=== PATIENT | male | born 1940 | race Caucasian/White ===

== ENCOUNTER → 2016-11-04 | Outpatient (CLI) | payer MEDICARE | LOC: WI 21:01 | PROVIDERS: ATTEND Internal Medicine | DX: C34.11 Malignant neoplasm of upper lobe, right bronchus or lung (principal) | CPT/HCPCS: 78815; A9552 ==

== ENCOUNTER → 2017-02-10 | Outpatient (CLI) | payer MEDICARE ==
--- NOTE | 2017-02-11 09:06 | RADIOLOGY REPORT (SQ) ---
EXAM DESCRIPTION: PET CT SKULL/THIGH COMPLETED DATE/TIME: 02/10/2017 4:25 pm REASON FOR STUDY: LUNG CANCER C34.11 MALIGNANT NEOPLASM OF UPPER LOBE, RIGHT BRONCHUS OR L COMPARISON: 11/04/2016 RADIONUCLIDE AND DOSE: 11.0 mCi F18 FDG The route of agent administration: Intravenous FASTING BLOOD SUGAR: 88 mg/dl CONTRAST TYPE AND DOSE: No CT contrast given. TECHNIQUE: Blood glucose level was verified. Above dose of FDG was injected intravenously. 2-D seg mented attenuation correction images were obtained from the base of the skull to the midthighs. Nonc ontrast CT images were obtained for attenuation correction and fusion with emission images. CT image s were performed without oral or intravenous contrast and are not sensitive for parenchymal lesions. A series of overlapping emission PET images were obtained. Images reviewed and manipulated at [facility] work station by the radiologist. Images stored on PACS. LIMITATIONS: None. FINDINGS: HEAD AND NECK: No areas of abnormal metabolic activity in the soft tissues of the head and neck. CHEST: Right upper lobe soft tissue density adjacent to treatment markers mean SUV 2.4. Morphology a nd metabolic activity are stable. ABDOMEN AND PELVIS: No areas of abnormal metabolic activity in the abdomen or pelvis. Expected physi ologic activity is present in the genitourinary system and bowel. PROXIMAL LOWER EXTREMITIES: No areas of abnormal metabolic activity in the soft tissues of the lower extremities. BONES: No abnormal metabolic activity in the visualized skeleton. ADDITIONAL CT FINDINGS: COPD and non hypermetabolic nodules measuring up to about 1 cm maximum diamet er. Small nonobstructing renal calculi. OTHER: No other significant findings. IMPRESSION: Previously treated neoplasm right upper lobe. Stable appearance since 11/04/2016 and 03/11. TECHNICAL DOCUMENTATION: JOB ID: [id number]- All Rights Reserved
== END ==
LOC: RAD 14:43
PROVIDERS: ATTEND Internal Medicine
DX: C34.11 Malignant neoplasm of upper lobe, right bronchus or lung (principal)
CPT/HCPCS: 78815; A9552

== ENCOUNTER 2017-04-04 08:30 | Day surgery (SDC) | payer MEDICARE ==
--- NOTE | 2017-03-28 14:37 | HISTORY AND PHYSICAL E ---
History and Physical NAME: VALENTIN DAVENPORT : 1940 AGE: 76Y ADMITTED: 04/04/2017 ROOM: HISTORY OF PRESENT ILLNESS: The patient is known to me for many years. He has not seen me since 1996. The patient is referred to us by Dr. Gaona regarding blood in the stools, hemorrhoids. PAST SURGICAL HISTORY: 1. He did have colonoscopy more than 10 years ago. 2. Thyroid surgery secondary to cancer. 3. He did have right upper lobe lung lesion resected. SOCIAL HISTORY: The patient is . Quit smoking 2012. He does not drink. FAMILY HISTORY: Father had CA of the lung. Mom had heart disease. REVIEW OF SYSTEMS: HEAD, EYES, EARS, NOSE, THROAT: The patient is using hearing aids. RESPIRATORY: Emphysema. He uses Spiriva. CARDIAC: Hypertension. High cholesterol. ENDOCRINE: History of thyroid resection, on thyroid replacement. GASTROINTESTINAL: Blood in the stools. Hemorrhoids. ONCOLOGY/HEMATOLOGY: Thyroid and lung CA. MUSCULOSKELETAL: Back pain. PHYSICAL EXAMINATION: GENERAL: Pleasant. VITAL SIGNS: Weight 205, blood pressure 110/60, pulse 80, temperature is 98. HEAD, EYES, EARS, NOSE, THROAT: Normal. NECK: Supple. LUNGS: Clear. ABDOMEN: Soft. NEUROLOGIC: Negative. CONCLUSION: Blood in the stool. PLAN: Colonoscopy. Scheduled for colonoscopy April 04. DICTATING PHYSICIAN: LAZARO SHAVER M.D. [id number] PHY#: [id number] ID: [id number] JOB#: [id number] ACCT: [id number] cc:LAZARO SHAVER M.D. >
[2017-04-04] MEDS ORDERED: MIDAZOLAM 2 MG/2 ML INJ ONE (08:44)
[2017-04-04] MEDS ORDERED: ONDANSETRON HCL INJ/PF 4 MG/2 ML SDV ONE (08:44)
[2017-04-04] MEDS ORDERED: NALOXONE HCL INJ/PF 0.4 MG/1 ML SDV ONE (08:44)
[2017-04-04] MEDS ORDERED: GLYCOPYRROLATE INJ 0.4 MG/2 ML VIAL ONE (08:44)
[2017-04-04] MEDS ORDERED: LIDOCAINE 2% JELLY 30 ML TUBE ONE (08:44)
[2017-04-04] MEDS ORDERED: FLUMAZENIL INJ 0.5 MG/5 ML VIAL ONE (08:45)
[2017-04-04] MEDS ORDERED: EPINEPHRINE INJ 1 MG/10 ML DISP.SYRIN ONE (08:45)
[2017-04-04] MEDS ORDERED: GLUCAGON,HUMAN RECOMB 1 MG INJ ONE (08:45)
[2017-04-04] MEDS: FENTANYL CITRATE INJ/PF 100 MCG/2 ML AMPUL ONE ×3 (09:11→09:26)
[2017-04-04 10:40] VITALS: BP 110/59
[2017-04-04 11:16] LABS: HEMATOCRIT 38.9 % (37.9-51.0); HEMOGLOBIN 13.1 g/dL (13.5-17.0); HGB HCT DIFFERENCE 0.4; MEAN CORPUSCULAR HEMOGLOBIN 30.6 pg (27.0-33.4); MEAN CORPUSCULAR HGB CONC 33.6 g/dL (32.0-36.0); MEAN CORPUSCULAR VOLUME 91 fl (80-97); RED BLOOD COUNT 4.27 10^6/uL (4.35-5.55); RED CELL DISTRIBUTION WIDTH 14.3 % (11.5-14.0); WHITE BLOOD COUNT 12.9 10^3/uL (4.0-10.5)
[2017-04-04 12:03] LABS: CARCINOEMBRYONIC ANTIGEN 2.2 ng/mL (<3.0)
--- NOTE | 2017-04-04 13:33 | DISCHARGE SUMMARY E ---
Discharge Summary NAME: VALENTIN DAVENPORT : 1940 AGE: 76Y ADMITTED: 04/04/2017 DISCHARGED: 04/04/2017 HOSPITAL COURSE: The patient is a 76-year-old male known to me, underwent colon screening today that shows a sessile polyp sigmoid descending resected and a sessile small polyp 1 cm mid transverse colon biopsied and benign diminutive polyps in the cecum. Patient does have diffuse diverticulosis. DISCHARGE PLAN: Hold aspirin, nonsteroidal 5 days. Full liquid diet today, then soft, low-residue diet for a few days. Patient to have baseline lab studies. Patient to see us in the office in the next few days. FINAL DIAGNOSES: 1. Colon polyps. 2. Diverticulosis. DICTATING PHYSICIAN: LAZARO SHAVER M.D. [id number] PHY#: [id number] ID: [id number] JOB#: [id number] ACCT: [id number] cc:CHEYENNE CARTAGENA M.D., MAHMOUD M.D. >
--- NOTE | 2017-04-04 13:35 | OPERATIVE REPORT E ---
Operative Report NAME: VALENTIN DAVENPORT : 1940 AGE: 76Y DATE OF SURGERY: 04/04/2017 ROOM: PREOPERATIVE DIAGNOSIS: Colon screening. POSTOPERATIVE DIAGNOSES: 1. Sessile polyp in the sigmoid descending colon, injected, resected. 2. A sessile polyp in mid transverse colon, biopsy. 3. Small poly in cecum, biopsy. 4. Patient does have diverticulosis in sigmoid descending colon. PROCEDURE: Colonoscopy. SURGEON: LAZARO SHAVER M.D. ANESTHESIA: Versed and fentanyl combination. TISSUE REMOVED OR ALTERED: One polyp injected, resected in descending colon sigmoid. A small polyp biopsy and Catarina ink transverse colon and sessile polyp in cecum. Recommend patient to undergo followup colonoscopy in 3-6 months pending biopsy results. DESCRIPTION OF PROCEDURE: Rectal exam: Enlarged prostate. Anal sphincter slightly narrow. Sigmoid descending colon diverticulosis. Sessile polyp about 1 cm in the descending colon, injected, resected. Transverse colon shows a sessile 1 cm polyp biopsied and Catarina ink above it and below it. Ascending colon normal. Cecum shows tiny polyps. Biopsy obtained. Scope withdrawn from cecum, ascending, transverse, descending, sigmoid, all the way to the rectum. CONCLUSION: Multiple polyps. PLAN: Patient to be discharged on full liquids and soft low residue diet. Baseline CBC, CEA. Awaiting biopsy results. Consider followup colonoscopy in 3 months to 6 months. DICTATING PHYSICIAN: LAZARO SHAVER M.D. [id number] PHY#: [id number] ID: [id number] JOB#: [id number] ACCT: [id number] cc:CHEYENNE CARTAGENA M.D., MAHMOUD M.D. >
== END 2017-04-04 10:55 | disposition home or self-care (01) ==
LOC: END 08:30
PROVIDERS: ATTEND Specialist
PROC: 0DBH8ZX Excision of Cecum, Via Natural or Artificial Opening Endoscopic, Diagnostic (ICD-10-PCS; principal; 2017-04-04 09:00)
PROC: 0DBL8ZX Excision of Transverse Colon, Via Natural or Artificial Opening Endoscopic, Diagnostic (ICD-10-PCS; 2017-04-04 09:00)
DX: D12.0 Benign neoplasm of cecum (principal); D12.3 Benign neoplasm of transverse colon; K57.30 Diverticulosis of large intestine without perforation or abscess without bleeding; K92.1 Melena; R97.0 Elevated carcinoembryonic antigen [CEA]; Z12.5 Encounter for screening for malignant neoplasm of prostate; I10 Essential (primary) hypertension; E78.00 Pure hypercholesterolemia, unspecified; J43.9 Emphysema, unspecified; E89.0 Postprocedural hypothyroidism; Z87.891 Personal history of nicotine dependence; Z79.51 Long term (current) use of inhaled steroids; Z85.850 Personal history of malignant neoplasm of thyroid; Z85.118 Personal history of other malignant neoplasm of bronchus and lung
CPT/HCPCS: 45380; 45385; 45381; 36415; 82378; 85027; 88305 ×2; G0103; J2250; J3010; J1610; J0171; J2310; J2405; J3490

== ENCOUNTER → 2017-06-09 | Outpatient (CLI) | payer MEDICARE ==
--- NOTE | 2017-06-10 17:50 | RADIOLOGY REPORT (SQ) ---
EXAM DESCRIPTION: PET CT SKULL/THIGH COMPLETED DATE/TIME: 06/09/2017 9:05 pm REASON FOR STUDY: LUNG CANCER C34.11 MALIGNANT NEOPLASM OF UPPER LOBE, RIGHT BRONCHUS OR L COMPARISON: Prior PET-CT exams 09/10/2016, 11/04/2016, 03/11/2016 RADIONUCLIDE AND DOSE: 11.7 mCi F18 FDG The route of agent administration: Intravenous FASTING BLOOD SUGAR: 84 mg/dl CONTRAST TYPE AND DOSE: No CT contrast given. TECHNIQUE: Blood glucose level was verified. Above dose of FDG was injected intravenously. 2-D seg mented attenuation correction images were obtained from the base of the skull to the midthighs. Nonc ontrast CT images were obtained for attenuation correction and fusion with emission images. CT image s were performed without oral or intravenous contrast and are not sensitive for parenchymal lesions. A series of overlapping emission PET images were obtained. Images reviewed and manipulated at [facility] work station by the radiologist. Images stored on PACS. LIMITATIONS: None. FINDINGS: HEAD AND NECK: No areas of abnormal metabolic activity in the soft tissues of the head and neck. Surgical clips post thyroidectomy. CHEST: In the right lung apex, a 3.5 x 3 cm mass is present with radiotherapy treatment markers. SUV 1.9. This is unchanged from 11/04/2016 and 02/10/2017. Lungs otherwise demonstrate pulmonary fibrosis and obstructive lung disease. Non metabolic subcentim eter subpleural noncalcified nodules are present in the periphery of the right upper lobe, with a non metabolic benign 12 mm nodule along the right minor fissure. ABDOMEN AND PELVIS: No areas of abnormal metabolic activity in the abdomen or pelvis. Expected physi ologic activity is present in the genitourinary system and bowel. PROXIMAL LOWER EXTREMITIES: No areas of abnormal metabolic activity in the soft tissues of the lower extremities. BONES: No abnormal metabolic activity in the visualized skeleton. ADDITIONAL CT FINDINGS: Coronary artery calcifications. Post appendectomy. Old lower lumbar laminec sean. OTHER: Liver background SUV 2.4. Blood pool background activity SUV 1.6 IMPRESSION: Stable right apical lung mass, compared to 02/10/2017 and 11/04/2016 PET-CT exam TECHNICAL DOCUMENTATION: JOB ID: [id number] [employer]- All Rights Reserved
== END ==
LOC: RAD 16:36
PROVIDERS: ATTEND Internal Medicine
DX: C34.11 Malignant neoplasm of upper lobe, right bronchus or lung (principal)
CPT/HCPCS: 78815; A9552

== ENCOUNTER → 2017-12-02 | Outpatient (CLI) | payer MEDICARE ==
--- NOTE | 2017-12-02 10:35 | RADIOLOGY REPORT (SQ) ---
EXAM DESCRIPTION: CT CHEST WITHOUT COMPLETED DATE/TIME: 12/02/2017 8:23 am REASON FOR STUDY: LUNG CANCER C34.11 MALIGNANT NEOPLASM OF UPPER LOBE, RIGHT BRONCHUS OR L COMPARISON: 09/10/2016 TECHNIQUE: CT scan performed of the chest without intravenous contrast. Images reviewed with lung, soft tissue and bone windows. Reconstructed coronal and sagittal MPR images reviewed. All images st ored on PACS. All CT scanners at this facility use dose modulation, iterative reconstruction, and/or weight based d osing when appropriate to reduce radiation dose to as low as reasonably achievable (ALARA). [facility]: Dose Right [facility]: CareDose [facility]: Dose Right [facility]: Teradose 4D [facility]: [employer] RADIATION DOSE: CT Rad equipment meets quality standard of care and radiation dose reduction techniq ues were employed. CTDIvol: 10.6 mGy. DLP: 412 mGy-cm. mGy. LIMITATIONS: No technical limitations. FINDINGS: LUNGS AND PLEURA: Right upper lobe lung mass is now measures 32 x 30 mm. This is slightly smaller than on the earlier study. Moderate emphysematous changes are present. A 12 mm nodule is s een on the right on image 65. This is stable. No new pulmonary nodules are present. There is no pl eural effusion. HILAR AND MEDIASTINAL STRUCTURES: No identified masses or abnormal nodes. No obvious aneurysm. HEART AND VASCULAR STRUCTURES: No aneurysm. No pericardial effusion. UPPER ABDOMEN: No significant findings. Limited exam. THYROID AND OTHER SOFT TISSUES: No masses. No adenopathy. BONES: No significant finding. HARDWARE: None in the chest. OTHER: No other significant findings. IMPRESSION: Right upper lobe lung mass is slightly smaller than on the prior study. There is a 12 m m nodule seen in the right lung that is stable. Pulmonary emphysema is present. TECHNICAL DOCUMENTATION: JOB ID: [id number] Quality ID # [id number]: Final reports with documentation of one or more dose reduction techniques (e.g., Au tomated exposure control, adjustment of the mA and/or kV according to patient size, use of iterative reconstruction technique) 2010 [employer]- All Rights Reserved Reading location - IP/workstation name: [email or web address]
== END ==
LOC: RAD 08:14
PROVIDERS: ATTEND Internal Medicine
DX: C34.11 Malignant neoplasm of upper lobe, right bronchus or lung (principal); J43.9 Emphysema, unspecified
CPT/HCPCS: 71250

== ENCOUNTER → 2018-05-21 | Outpatient (CLI) | payer MEDICARE ==
--- NOTE | 2018-05-21 13:18 | RADIOLOGY REPORT (SQ) ---
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 Images reviewed with lung, soft tissue and bone windows. Reconstructed coronal and sagittal MPR images reviewed. All images st ored on PACS. All CT scanners at this facility use dose modulation, iterative reconstruction, and/or weight based d osing when appropriate to reduce radiation dose to as low as reasonably achievable (ALARA). [facility]: Dose Right [facility]: CareDose [facility]: Dose Right [facility]: Teradose 4D [facility]: [employer] RADIATION DOSE: CT Rad equipment meets quality standard of care and radiation dose reduction techniq ues were employed. CTDIvol: 9.9 mGy. DLP: 375 mGy-cm. mGy. LIMITATIONS: No technical limitations. FINDINGS: LUNGS AND PLEURA: Right apical mass with radiotherapy treatment markers is present, 3 x 3 cm in size (was 3.2 x 3 cm on 12/02/2017, 3.5 x 3 cm on 06/09/2017). There is a stable 12 mm bandlike nodule along the right minor fissure unchanged compared to studies d ating back to 2013, of doubtful clinical significance. 4 mm nodule posterior left lung base unchange d from studies dating back to 2013, of doubtful clinical significance. No acute infiltrates. No pleural effusion. No pneumothorax. Obstructive lung disease in the bilate ral upper lobes. Mild thickening of the interlobular septa at both lung bases, from mild pulmonary f ibrosis. HILAR AND MEDIASTINAL STRUCTURES: No identified masses or abnormal nodes. No obvious aneurysm. HEART AND VASCULAR STRUCTURES: No aneurysm. No pericardial effusion. Moderate coronary artery calci fication UPPER ABDOMEN: No significant findings. Limited exam. THYROID AND OTHER SOFT TISSUES: No masses. No adenopathy. Post thyroidectomy. BONES: No significant finding. HARDWARE: None in the chest. OTHER: No other significant findings. IMPRESSION: Persistent right apical mass with radiotherapy treatment markers, slightly smaller than on previous exams. Significant obstructive lung disease and coronary artery calcifications TECHNICAL DOCUMENTATION: JOB ID: [id number] Quality ID # [id number]: Final reports with documentation of one or more dose reduction techniques (e.g., Au tomated exposure control, adjustment of the mA and/or kV according to patient size, use of iterative reconstruction technique) 2010 [employer]- All Rights Reserved Reading location - IP/workstation name: [email or web address]
== END ==
LOC: RAD 13:58
PROVIDERS: ATTEND Internal Medicine
DX: C34.11 Malignant neoplasm of upper lobe, right bronchus or lung (principal)
CPT/HCPCS: 71250

== ENCOUNTER 2018-09-22 09:42 | Emergency (ER) | payer MEDICARE ==
[2018-09-22] MEDS ORDERED: ACETAMINOPHEN 325 MG TABLET PO ONE (10:40)
--- NOTE | 2018-09-22 10:40 | ER Document Report ---
Addendum entered and electronically signed by DESTINEE CRUZ FNP 09/22/18 22:48: Procedures - Immobilization Left Shoulder Pre-Proc Neuro Vasc Exam: Normal Immobilizer type: Sling Performed by: PCT Post-Proc Neuro Vasc Exam: Normal, Unchanged from pre-exam Alignment checked and good: Yes Original Note: HPI - HPI Time Seen by Provider: 09/22/18 10:27 Pain Level: 3 Context: Patient is a 78-year-old male who presents the emergency department with left shoulder and upper arm pain. This morning around 730 he fell off the back of a truck and hit his left shoulder. He complains of pain to his left upper anterior shoulder. He denies any shortness of breath, chest pain, or hand pain. He has a past medical history of lung cancer, hypothyroidism, hypertension, stents placed in 1998. He denies any blood thinner use. He denies hitting his head. - ROS Systems Reviewed and Negative: Yes All other systems reviewed and negative - EENT EENT: DENIES: Sore Throat - NEURO Neurology: DENIES: Headache - CARDIOVASCULAR Cardiovascular: DENIES: Chest pain - MUSCULOSKELETAL Musculoskeletal: REPORTS: Extremity pain - Left shoulder - DERM Skin Color: Normal Skin Problems: None Past Medical History - Social History Smoking Status: Never Smoker Family History: Reviewed & Not Pertinent - Past Medical History Cardiac Medical History: Reports: Hx Congestive Heart Failure, Hx Coronary Artery Disease - stent x 1998, Hx Hypercholesterolemia, Hx Hypertension - ON MEDS Denies: Hx Heart Attack Pulmonary Medical History: Reports: Hx COPD, Hx Pneumonia - 15 YR AGO Denies: Hx Asthma, Hx Bronchitis Neurological Medical History: Denies: Hx Cerebrovascular Accident, Hx Seizures Malignancy Medical History: Reports Hx Lung Cancer Musculoskeletal Medical History: Reports Hx Arthritis Past Surgical History: Reports: Hx Abdominal Surgery - small bowel, Hx Appendectomy, Hx Cardiac Catheterization - w/ stent , Hx Orthopedic Surgery - knee, back, carple tunnel - Immunizations Hx Diphtheria, Pertussis, Tetanus Vaccination: Yes Hx Pneumococcal Vaccination: 04/09/16 Vertical Provider Document - CONSTITUTIONAL Agree With Documented VS: Yes Exam Limitations: No Limitations - INFECTION CONTROL TRAVEL OUTSIDE OF THE [place] IN LAST 30 DAYS: No - HEENT HEENT: Atraumatic, Normocephalic - NECK Neck: Normal Inspection - RESPIRATORY Respiratory: Breath Sounds Normal, No Respiratory Distress - CARDIOVASCULAR Cardiovascular: Regular Rate, Regular Rhythm Pulses: Normal: Radial - MUSCULOSKELETAL/EXTREMETIES Musculoskeletal/Extremeties: Tender - Left shoulder. negative: FROM - Unable to lift left upper extremity - NEURO Level of Consciousness: Awake, Alert, Appropriate Motor/Sensory: No Sensory Deficit - DERM Integumentary: Warm, Dry, No Rash Course - Re-evaluation Re-evalutation: 09/22/18 11:36 Patient has a nondisplaced fracture of the surgical neck of the humerus. He has good radial and ulnar pulses. He will be provided a sling and referred out to orthopedics for follow-up. Results have been given to the patient. Verbal discharge instructions were given to the patient. They verbalized understanding. They are stable for discharge. - Vital Signs Vital signs: Temp Pulse Resp BP Pulse Ox 97.7 F 64 16 165/78 H 97 09/22/18 09:57 09/22/18 09:57 09/22/18 09:57 09/22/18 09:57 09/22/18 09:57 Discharge - Discharge Clinical Impression: Humeral surgical neck fracture Condition: Stable Disposition: HOME, SELF-CARE Instructions: Ice Packs ([facility]), Sling as Treatment ([facility]) Additional Instructions: You were seen today in the emergency department after a fall. You have a fracture in your upper arm. Please follow-up with orthopedics tomorrow. You have been provided a sling. Please wear the sling until you see orthopedics. You can take Tylenol 1000 mg and ibuprofen 600 mg every 6 hours as needed for the pain. If you have worsening symptoms, or have any symptoms that are worrisome to you, please return to the emergency department. Referrals: RIA ESTRADA MD [ACTIVE STAFF] - Follow up as needed DRU LEDEZMA DO [ACTIVE STAFF] - Follow up as needed
--- NOTE | 2018-09-22 11:19 | RADIOLOGY REPORT (SQ) ---
EXAM DESCRIPTION: SHOULDER LEFT 2 OR MORE VIEWS COMPLETED DATE/TIME: 09/22/2018 10:55 am REASON FOR STUDY: fall COMPARISON: None. NUMBER OF VIEWS: Three views. TECHNIQUE: Internal rotation, external rotation, and Y view images acquired of the left shoulder. LIMITATIONS: None. FINDINGS: MINERALIZATION: Normal. BONES: Comminuted fracture of the surgical neck. Fracture line extends through the greater tuberosit y. Less than 1 cm displacement. JOINTS: No dislocation. VISUALIZED LUNGS AND RIBS: No pneumothorax. No rib fracture. SOFT TISSUES: No radiopaque foreign body. OTHER: No other significant finding. IMPRESSION: Fracture of the surgical neck of the humerus. TECHNICAL DOCUMENTATION: JOB ID: [id number] [employer]- All Rights Reserved Reading location - IP/workstation name: [email or web address]
[2018-09-22 12:05] VITALS: BP 130/66
== END 2018-09-22 12:08 | disposition home or self-care (01) ==
LOC: ER 09:42
DX: S42.215A Unspecified nondisplaced fracture of surgical neck of left humerus, initial encounter for closed fracture (principal); M25.512 Pain in left shoulder; W17.89XA Other fall from one level to another, initial encounter; I25.10 Atherosclerotic heart disease of native coronary artery without angina pectoris; I10 Essential (primary) hypertension; J44.9 Chronic obstructive pulmonary disease, unspecified; Z85.118 Personal history of other malignant neoplasm of bronchus and lung; Z95.5 Presence of coronary angioplasty implant and graft
CPT/HCPCS: 99283; 73030; A9270

== ENCOUNTER → 2018-10-31 | Outpatient (CLI) | payer MEDICARE ==
--- NOTE | 2018-10-31 09:13 | RADIOLOGY REPORT (SQ) ---
EXAM DESCRIPTION: CT CHEST WITHOUT COMPLETED DATE/TIME: 10/31/2018 8:13 am REASON FOR STUDY: LUNG CA (C34.11) C34.11 MALIGNANT NEOPLASM OF UPPER LOBE, RIGHT BRONCHUS OR L COMPARISON: 05/21/2018. TECHNIQUE: CT scan performed of the chest without intravenous contrast. Images reviewed with lung, soft tissue and bone windows. Reconstructed coronal and sagittal MPR images reviewed. All images st ored on PACS. All CT scanners at this facility use dose modulation, iterative reconstruction, and/or weight based d osing when appropriate to reduce radiation dose to as low as reasonably achievable (ALARA). [facility]: Dose Right [facility]: CareDose [facility]: Dose Right [facility]: Teradose 4D [facility]: [employer] RADIATION DOSE: CT Rad equipment meets quality standard of care and radiation dose reduction techniq ues were employed. CTDIvol: 14.1 mGy. DLP: 556 mGy-cm. mGy. LIMITATIONS: No technical limitations. FINDINGS: LUNGS AND PLEURA: Changes of centrilobular emphysema. Findings consist with subpleural c hronic interstitial changes with minimal honeycombing noted in lung bases. Right upper lobe mass wit h radiotherapy treatment markers now measuring 3.1 cm(AP) x3.5(T)x1.9(H) larger in size when compared to prior study 05/21/2018 (image 27/131 series 4). There is a 1.4(AP) x 0.6(T)x0.6(H) cm nodule abu tting the minor fissure again noted (image 58/131 series 4). There is a 4 mm pulmonary nodule left l ower lobe unchanged (image 82/131 series 4). HILAR AND MEDIASTINAL STRUCTURES: Small AP window nodes and anterior mediastinal nodes. HEART AND VASCULAR STRUCTURES: Atherosclerotic change of the coronary arteries. Atherosclerotic quiles ge of thoracic aorta. No pericardial effusion. UPPER ABDOMEN: No significant findings. Limited exam. THYROID AND OTHER SOFT TISSUES: No masses. No adenopathy. BONES: Dorsal spondylosis. HARDWARE: Total left humeral prosthesis. . IMPRESSION: On comparison to prior study, there has been minimal increase in size of right upper lob e mass with radiotherapy markers. Stable elliptical mass abutting right but are fissure. Stable 4 m m low left lower lobe pulmonary nodule. Centrilobular emphysema. Chronic interstitial fibrosis. At herosclerotic coronary artery disease. TECHNICAL DOCUMENTATION: JOB ID: [id number] Quality ID # [id number]: Final reports with documentation of one or more dose reduction techniques (e.g., Au tomated exposure control, adjustment of the mA and/or kV according to patient size, use of iterative reconstruction technique) 2010 [employer]- All Rights Reserved Reading location - IP/workstation name: [email or web address]
== END ==
LOC: RAD 07:51
PROVIDERS: ATTEND Internal Medicine
DX: C34.11 Malignant neoplasm of upper lobe, right bronchus or lung (principal)
CPT/HCPCS: 71250

== ENCOUNTER → 2018-11-16 | Outpatient (CLI) | payer MEDICARE ==
--- NOTE | 2018-11-17 10:35 | RADIOLOGY REPORT (SQ) ---
EXAM DESCRIPTION: PET CT SKULL/THIGH COMPLETED DATE/TIME: 11/17/2018 4:08 am REASON FOR STUDY: (C34.11) MALIGNANT NEOPLASM OF UPPER LOBE, RIGHT BRONCHUS OR LUNG C34.11 MALIGNAN T NEOPLASM OF UPPER LOBE, RIGHT BRONCHUS OR L COMPARISON: 06/09/2017 RADIONUCLIDE AND DOSE: 10.7 mCi F18 FDG The route of agent administration: Intravenous FASTING BLOOD SUGAR: 92 mg/dl CONTRAST TYPE AND DOSE: No CT contrast given. TECHNIQUE: Blood glucose level was verified. Above dose of FDG was injected intravenously. 2-D seg mented attenuation correction images were obtained from the base of the skull to the midthighs. Nonc ontrast CT images were obtained for attenuation correction and fusion with emission images. CT image s were performed without oral or intravenous contrast and are not sensitive for parenchymal lesions. A series of overlapping emission PET images were obtained. Images [facility] by the radiologist. Images stored on PACS. LIMITATIONS: Artifact from left shoulder arthroplasty. FINDINGS: HEAD AND NECK: No areas of abnormal metabolic activity in the soft tissues of the head and neck. CHEST: Right apical eft lesion with radiation markers 2.5 x 3.3 cm, previously 3.0 x 3.5 cm. 2.0 SUV . ABDOMEN AND PELVIS: No areas of abnormal metabolic activity in the abdomen or pelvis. Expected physi ologic activity is present in the genitourinary system and bowel. PROXIMAL LOWER EXTREMITIES: No areas of abnormal metabolic activity in the soft tissues of the lower extremities. BONES: No abnormal metabolic activity in the visualized skeleton. ADDITIONAL CT FINDINGS: Stable non hypermetabolic nodule along the right minor fissure. No significa nt or acute findings since the prior. OTHER: No other significant findings. IMPRESSION: Decrease in size of right apical lung nodule. No evidence of metastatic disease. TECHNICAL DOCUMENTATION: JOB ID: [id number] [employer]- All Rights Reserved Reading location - IP/workstation name: [email or web address]
== END ==
LOC: RAD 17:16
PROVIDERS: ATTEND Physician Assistant Medical
DX: C34.11 Malignant neoplasm of upper lobe, right bronchus or lung (principal)
CPT/HCPCS: 78815; A9552

== ENCOUNTER → 2019-11-12 | Outpatient (CLI) | payer MEDICARE ==
--- NOTE | 2019-11-12 09:46 | RADIOLOGY REPORT (SQ) ---
EXAM DESCRIPTION: CT CHEST WITHOUT IMAGES COMPLETED DATE/TIME: 11/12/2019 8:38 am REASON FOR STUDY: LUNG CA (C34.11) C34.11 MALIGNANT NEOPLASM OF UPPER LOBE, RIGHT BRONCHUS OR L COMPARISON: 10/31/2018. PET-CT 11/16/2018. TECHNIQUE: CT scan performed of the chest without intravenous contrast. Images reviewed with lung, soft tissue and bone windows. Reconstructed coronal and sagittal MPR images reviewed. All images st ored on PACS. All CT scanners at this facility use dose modulation, iterative reconstruction, and/or weight based d osing when appropriate to reduce radiation dose to as low as reasonably achievable (ALARA). [facility]: Dose Right [facility]: CareDose [facility]: Dose Right [facility]: Teradose 4D [facility]: Perfect Audience RADIATION DOSE: CT Rad equipment meets quality standard of care and radiation dose reduction techniq ues were employed. CTDIvol: 13.9 mGy. DLP: 534 mGy-cm. mGy. LIMITATIONS: Artifact from left shoulder arthroplasty. FINDINGS: LUNGS AND PLEURA: Mass with radiation markers in the right upper lobe measures 3.0 by 3.4 cm not significantly changed. Much smaller nodules in the right lung, image 46, image 51, image 61 a ll stable. 4 mm left lower lobe nodule image 84, stable. No new nodules. HILAR AND MEDIASTINAL STRUCTURES: No identified masses or abnormal nodes. No obvious aneurysm. HEART AND VASCULAR STRUCTURES: No aneurysm. No pericardial effusion. UPPER ABDOMEN: No significant findings. Limited exam. THYROID AND OTHER SOFT TISSUES: No masses. No adenopathy. BONES: No significant finding. HARDWARE: None in the chest. OTHER: No other significant findings. IMPRESSION: Stable pulmonary nodules. TECHNICAL DOCUMENTATION: JOB ID: [id number] Quality ID # [id number]: Final reports with documentation of one or more dose reduction techniques (e.g., Au tomated exposure control, adjustment of the mA and/or kV according to patient size, use of iterative reconstruction technique) 2010 [employer]- All Rights Reserved Reading location - IP/workstation name: [email or web address]
== END ==
LOC: RAD 08:26
PROVIDERS: ATTEND Physician Assistant Medical
DX: C34.11 Malignant neoplasm of upper lobe, right bronchus or lung (principal)
CPT/HCPCS: 71250

== ENCOUNTER 2020-01-13 09:44 | Day surgery (SDC) | payer MEDICARE ==
[2020-01-08 08:27] LABS: HEMATOCRIT 39.6 % (37.9-51.0); HEMOGLOBIN 13.5 g/dL (13.5-17.0); MEAN CORPUSCULAR HEMOGLOBIN 31.4 pg (27.0-33.4); MEAN CORPUSCULAR HGB CONC 34.2 g/dL (32.0-36.0); MEAN CORPUSCULAR VOLUME 92 fl (80-97); PLATELET COUNT 219 10^3/uL (150-450); RED BLOOD COUNT 4.31 10^6/uL (4.35-5.55); RED CELL DISTRIBUTION WIDTH 13.5 % (11.5-14.0); WHITE BLOOD COUNT 8.1 10^3/uL (4.0-10.5)
[2020-01-08 08:35] LABS: INTERNATIONAL RATION (INR) 0.96; PROTHROMBIN TIME 12.8 SEC (11.4-15.4)
[2020-01-08 08:36] LABS: PARTIAL THROMBOPLASTIN TIME 30.2 SEC (23.5-35.8)
[2020-01-08 08:51] LABS: ANION GAP 7 (5-19); BLOOD UREA NITROGEN 19 mg/dL (7-20); CALCIUM 9.4 mg/dL (8.4-10.2); CARBON DIOXIDE 29 mmol/L (22-30); CHLORIDE 102 mmol/L (98-107); GLUCOSE 112 mg/dL (75-110); POTASSIUM 4.5 mmol/L (3.6-5.0)
--- NOTE | 2020-01-08 18:20 | EKG REPORT ---
SEVERITY:- ABNORMAL ECG - SINUS RHYTHM FIRST DEGREE AV BLOCK RIGHT BUNDLE BRANCH BLOCK : Confirmed by: Praveen Cervantes MD 08-Jan-2020 18:19:57
[~2020-01-13 09:44] MED LIST: CEFAZOLIN 1 GM/D5W RTU 1 GM/50 ML RTUPB IV ONE; CEFAZOLIN 1 GM/D5W RTU 1 GM/50 ML RTUPB IV PRN; LACTATED RINGERS 1000 ML IV PRN
[2020-01-13] MEDS ORDERED: SODIUM BICARBONATE 4.2% INJ (2.5 MEQ/5 ML) VIAL ONE (11:42)
[2020-01-13] MEDS ORDERED: LIDOCAINE 1%/EPINEPHRINE INJ 20 ML VIAL ONE ×2 (11:42→11:43)
[2020-01-13] MEDS ORDERED: POVIDONE-IODINE 5% OPH PREP SOLN 30 ML ONE (11:42)
[2020-01-13] MEDS ORDERED: PROPOFOL INJ 200 MG/20 ML VIAL IV ONE (11:43)
[2020-01-13] MEDS ORDERED: MIDAZOLAM 2 MG/2 ML INJ ONE (11:43)
[2020-01-13] MEDS ORDERED: FENTANYL CITRATE INJ/PF 100 MCG/2 ML AMPUL ONE (11:43)
[2020-01-13] MEDS ORDERED: DIPHENHYDRAMINE HCL 50 MG/ML VIAL IV PRN (12:07)
[2020-01-13] MEDS ORDERED: MEPERIDINE HCL/PF INJ 25 MG/1 ML DISP.SYRIN IV PRN (12:07)
[2020-01-13] MEDS ORDERED: OXYCODONE-ACETAMINOPHEN 5-325 MG TABLET PO PRN ×2 (12:07)
[2020-01-13] MEDS ORDERED: PROMETHAZINE HCL INJ 25 MG/1 ML VIAL IV PRN ×2 (12:07)
[2020-01-13] MEDS ORDERED: FENTANYL CITRATE INJ/PF 100 MCG/2 ML AMPUL IV PRN ×3 (12:07)
--- NOTE | 2020-01-13 13:35 | Operative Report ---
Operative Report DATE OF SURGERY: 01/13/20 PREOPERATIVE DIAGNOSIS: Suspected basal cell carcinoma of the left upper sideb urn POSTOPERATIVE DIAGNOSIS: Basal cell carcinoma of the left upper sideburn OPERATION: Excision of basal cell carcinoma from the left upper sideburn with frozen section margin control and a philip-auricular crescent flap reconstruction SURGEON: CHONG WILLIS ANESTHESIA: LMAC TISSUE REMOVED OR ALTERED: Basal cell carcinoma COMPLICATIONS: None ESTIMATED BLOOD LOSS: Minimal PROCEDURE: Patient seen and was marked prior to being brought into the operating room. Patient was brought into the operating room and placed on the operating room table in a supine position. Patient was then prepped with a Betadine scrub and Betadine solution and draped in a sterile and aseptic manner. The area was then marked. 12 O'clock was marked towards the nose 3 O'clock was marked towards the mandibular margin 6:00 was marked towards the ear 9:00 was marked towards the apex of the scalp The area was then anesthetized with 1% lidocaine with epinephrine and bicarbonate for its anesthetic and hemostatic effects. The area was then excised and marked at 12:00. The specimen was sent for frozen section. The results came back that the deep and lateral margins were free. We had considered a primary closure but this would go against the natural relaxed skin tension lines. A primary closure would be too tight and would have increased chance of dehiscence. This will leave more of a scar so we decided to use a philip-auricular crescent flap reconstruction which would camouflage the scar better and take tension off of the closure so that would be less chances of complications. It was felt that by using this flap this would allow us to camouflage the scar within his sideburn and distort the ear to the least amount. This will allow us to curve around the area of the ear and keep his hairline intact. This also would cause the least amount of distortion of his eyebrow in his lateral canthus. This flap would also allow us to do adequate undermining of the skin in order to facilitate a tension-free closure which was not possible with a direct closure because of the excessive tension in the scalp and sideburn area. Then we went ahead and outlined the flap and anesthetized it. We then incised the flap and developed a flap maintaining the subdermal plexus. Then we undermined 360 to allow for plate like scarring and minimize trap door deformity. Throughout the case hemostasis was achieved with the bipolar. We then sutured the flap into its new position using 4-0 Vicryl for the subcutaneous and deep dermis. Skin was closed with a running subcuticular suture stitch using 3-0 Prolene with knots being tied on the outside. And 3-0 Prolene suture was used for support and placed in the central area of the incision. We then applied skin glue followed by a light pressure dressing. Patient was then reversed from anesthesia and taken to the [facility] for recovery. The patient tolerated well. There were no complications. Lesion size was approximately 1.8 cm please see pathology for actual size. Portions of this note may be dictated using [employer] voice recognition software. Occasional variations and spelling and vocabulary could be possible and are unintentional. Additionally, there is a chance that some errors may not be caught or corrected. Please notify the author of any discrepancies noted or if any statements are unclear. Subjective: No complaints Objective: Vital signs stable afebrile No bleeding Dressing intact Assessment and plan: Doing well. Elevate the operative site. Resume medications. Take antibiotics for 1 day Follow-up Full instructions were given to the patient and family and they understand Portions of this note may be dictated using [employer] voice recognition software. Occasional variations and spelling and vocabulary could be possible and are unintentional. Additionally, there is a chance that some errors may not be caught or corrected. Please notify the offer of any discrepancies noted or if any statements are unclear.
--- NOTE | 2020-01-13 13:38 | Discharge Summary ---
Discharge Summary (SDC) - Discharge Final Diagnosis: Basal cell carcinoma of the left upper sideburn Date of Surgery: 01/13/20 Condition: Good Treatment or Instructions: Leave the top dressing on for 2 days, then removed. Clean the wound with peroxide once a day. Do not peel the glue until after a week and prior to suture removal. Antibiotics for 1 day, then discontinue. Elevate operative area to decrease swelling. Do not strain, or lift heavy objects. Call for excessive bleeding, increased temperature of 101, uncontrolled pain, or excessive nausea or vomiting. You may reach Dr. Dominguez through his office at [phone]. In the event of an emergency after hours, then contact Dr. Dominguez through . Return to the office for a postop check on . The time will be scheduled by the nursing staff of prior to discharge. Please give the patient a copy of their labs and EKG so they can bring this to their PMD. Thank you Portions of this note may be dictated using [employer] voice recognition software. Occasional variations and spelling and vocabulary could be possible and are unintentional. Additionally, there is a chance that some errors may not be caught or corrected. Please notify the offer of any discrepancies noted or if any statements are unclear. Referrals: CHEYENNE CARTAGENA MD [Primary Care Provider] - Discharge Diet: As Tolerated Discharge Activity: No Lifting/Push/Pulling Report the Following to Your Physician Immediately: Unusual Bleeding - Keep head elevated. Take antibiotics for today and tomorrow. Resume any medicines you have stopped starting tomorrow. Keep head elevated. Talk dressing comes off in 2 days. Clean the glue once a day with peroxide.
[2020-01-13 16:14] VITALS: BP 162/79
== END 2020-01-13 15:38 | disposition home or self-care (01) ==
LOC: OROUT 09:44
PROVIDERS: ATTEND Plastic Surgery
DX: C44.319 Basal cell carcinoma of skin of other parts of face (principal); I11.9 Hypertensive heart disease without heart failure; Z03.818 Encounter for observation for suspected exposure to other biological agents ruled out; Z79.01 Long term (current) use of anticoagulants; E07.9 Disorder of thyroid, unspecified; J44.9 Chronic obstructive pulmonary disease, unspecified; Z79.899 Other long term (current) drug therapy; Z85.820 Personal history of malignant melanoma of skin; Z85.828 Personal history of other malignant neoplasm of skin; Z85.118 Personal history of other malignant neoplasm of bronchus and lung; Z87.891 Personal history of nicotine dependence
CPT/HCPCS: 93005; 36415; 85027; 85610; 85730; 80048; 88305 ×2; 88331 ×2; 93010; U0003; J2250; J0690; J3010; J3490 ×3; J2704; C9803; 300; 87635

== ENCOUNTER → 2020-04-04 | Outpatient (CLI) | payer MEDICARE ==
[2020-04-04 09:27] LABS: ABSOLUTE BASOPHILS # (AUTO) 0.1 10^3/uL (0.0-0.2); ABSOLUTE EOSINOPHILS # (AUTO) 0.1 10^3/uL (0.0-0.6); ABSOLUTE LYMPHOCYTES (AUTO) 1.2 10^3/uL (0.5-4.7); ABSOLUTE MONOCYTES (AUTO) 0.5 10^3/uL (0.1-1.4); ABSOLUTE NEUT (AUTO) 7.1 10^3/uL (1.7-8.2); BASOPHILS % (AUTO) 0.6 % (0-2); EOSINOPHILS % (AUTO) 1.2 % (0-6); HEMATOCRIT 38.2 % (37.9-51.0); HEMOGLOBIN 13.1 g/dL (13.5-17.0); MEAN CORPUSCULAR HEMOGLOBIN 31.7 pg (27.0-33.4); MEAN CORPUSCULAR HGB CONC 34.2 g/dL (32.0-36.0); MEAN CORPUSCULAR VOLUME 93 fl (80-97); MONOCYTES % (AUTO) 5.7 % (3-13); PLATELET COUNT 206 10^3/uL (150-450); RED BLOOD COUNT 4.12 10^6/uL (4.35-5.55); RED CELL DISTRIBUTION WIDTH 13.9 % (11.5-14.0); SEGMENTED NEUTROPHILS % (AUTO) 79.5 % (42-78); TOTAL CELLS COUNTED % (AUTO) 100 %; WHITE BLOOD COUNT 8.9 10^3/uL (4.0-10.5)
[2020-04-04 09:36] LABS: ANION GAP 13 (5-19); BLOOD UREA NITROGEN 28 mg/dL (7-20); CALCIUM 9.2 mg/dL (8.4-10.2); CARBON DIOXIDE 22 mmol/L (22-30); CHLORIDE 104 mmol/L (98-107); GLUCOSE 119 mg/dL (75-110); POTASSIUM 3.8 mmol/L (3.6-5.0)
--- NOTE | 2020-04-04 13:23 | RADIOLOGY REPORT (SQ) ---
EXAM DESCRIPTION: CHEST PA/LATERAL IMAGES COMPLETED DATE/TIME: 04/04/2020 8:27 am REASON FOR STUDY: CENTRILOBULAR EMPHYSEMA COMPARISON: 10/03/2018 EXAM PARAMETERS: NUMBER OF VIEWS: two views TECHNIQUE: Digital Frontal and Lateral radiographic views of the chest acquired. RADIATION DOSE: NA LIMITATIONS: none FINDINGS: LUNGS AND PLEURA: Scarring in the right apex. Chronic interstitial changes. MEDIASTINUM AND HILAR STRUCTURES: No masses or contour abnormalities. HEART AND VASCULAR STRUCTURES: Heart size is borderline. No pari pulmonary edema. BONES: No acute findings. HARDWARE: Surgical clips in the right apex. OTHER: No other significant finding. IMPRESSION: Borderline cardiomegaly without pulmonary edema. Chronic lung changes. TECHNICAL DOCUMENTATION: JOB ID: [id number] 2010 [employer]- All Rights Reserved Reading location - IP/workstation name: [email or web address]
== END ==
LOC: OD 07:52
PROVIDERS: ATTEND Internal Medicine Pulmonary Disease
DX: J43.2 Centrilobular emphysema (principal)
CPT/HCPCS: 36415; 71046; 80048; 85025

== ENCOUNTER → 2020-06-16 | Outpatient (CLI) | payer MEDICARE | LOC: OD 07:59 | PROVIDERS: ATTEND Registered Nurse | DX: R06.00 Dyspnea, unspecified (principal) | CPT/HCPCS: 36415; 83880 ==

== ENCOUNTER 2020-06-20 14:46 | Emergency (ER) | payer MEDICARE ==
--- NOTE | 2020-06-20 15:43 | ER Document Report ---
ED Medical Screen (RME) - General Chief Complaint: Abnormal Lab Results Stated Complaint: ABNORMAL LABS Time Seen by Provider: 06/20/20 15:35 Primary Care Provider: TRE PERKINS FNP-C [Primary Care Provider] - Follow up as needed Mode of Arrival: Wheelchair Information source: Patient Notes: 80-year-old male presented to ED for complaint of BNP at 734. He states his doctor sent him to the emergency room that he was in CHF. He states he does have a history of high blood pressure high cholesterol knee problems back problems arthritis and her shoulder surgeries. He is alert oriented respirations regular nonlabored speaking in full sentences. He is a former smoker. When doing his vital signs his pulse was 37. I did an apical pulse it was 37. I did call get a room and placed the patient on a monitor and notify the MDs of his vital signs. I have greeted and performed a rapid initial assessment of this patient. A comprehensive ED assessment and evaluation of the patient, analysis of test results and completion of medical decision making process will be conducted by an additional ED providers. TRAVEL OUTSIDE OF THE [place] IN LAST 30 DAYS: No - Related Data Allergies/Adverse Reactions: Iodinated Contrast Media [Iodinated Contrast- Oral and IV Dye] Allergy (Intermediate, Verified 01/13/20 10:31) Generalized Itching Past Medical History - Past Medical History Cardiac Medical History: Reports: Hx Congestive Heart Failure, Hx Coronary Artery Disease - WITH STENT 1998, Hx Hypercholesterolemia, Hx Hypertension Denies: Hx Heart Attack Pulmonary Medical History: Denies: Hx Asthma, Hx Bronchitis, Hx COPD, Hx Pneumonia Neurological Medical History: Denies: Hx Cerebrovascular Accident, Hx Seizures Renal/ Medical History: Denies: Hx Peritoneal Dialysis Malignancy Medical History: Reports Hx Lung Cancer Musculoskeltal Medical History: Reports Hx Arthritis - BACK Past Surgical History: Reports: Hx Abdominal Surgery - small bowel, Hx Appendectomy, Hx Cardiac Catheterization - w/ stent , Hx Orthopedic Surgery - knee, back, carple tunnel, Hx Thyroid Surgery - Immunizations Hx Diphtheria, Pertussis, Tetanus Vaccination: Yes Physical Exam - Vital signs Vitals: Temp Pulse Resp BP Pulse Ox 98.0 F 37 L 18 169/50 H 96 06/20/20 03:35 06/20/20 03:35 06/20/20 03:35 06/20/20 03:35 06/20/20 03:35 Course - Vital Signs Vital signs: Temp Pulse Resp BP Pulse Ox 98.0 F 37 L 18 169/50 H 96 06/20/20 03:35 06/20/20 03:35 06/20/20 03:35 06/20/20 03:35 06/20/20 03:35 Doctor's Discharge - Discharge Referrals: TRE PERKINS FNP-C [Primary Care Provider] - Follow up as needed
[2020-06-20 16:07] LABS: ABSOLUTE BASOPHILS # (AUTO) 0.1 10^3/uL (0.0-0.2); ABSOLUTE LYMPHOCYTES (AUTO) 1.4 10^3/uL (0.5-4.7); ABSOLUTE MONOCYTES (AUTO) 0.7 10^3/uL (0.1-1.4); ABSOLUTE NEUT (AUTO) 10.6 10^3/uL (1.7-8.2); HEMATOCRIT 39.5 % (37.9-51.0); HEMOGLOBIN 13.1 g/dL (13.5-17.0); LYMPHOCYTES % (AUTO) 11.1 % (13-45); MEAN CORPUSCULAR HEMOGLOBIN 31.3 pg (27.0-33.4); MEAN CORPUSCULAR HGB CONC 33.2 g/dL (32.0-36.0); MEAN CORPUSCULAR VOLUME 95 fl (80-97); MONOCYTES % (AUTO) 5.2 % (3-13); PLATELET COUNT 239 10^3/uL (150-450); RED BLOOD COUNT 4.18 10^6/uL (4.35-5.55); RED CELL DISTRIBUTION WIDTH 13.8 % (11.5-14.0); SEGMENTED NEUTROPHILS % (AUTO) 82.7 % (42-78); TOTAL CELLS COUNTED % (AUTO) 100 %; WHITE BLOOD COUNT 12.8 10^3/uL (4.0-10.5)
--- NOTE | 2020-06-20 16:19 | RADIOLOGY REPORT (SQ) ---
EXAM DESCRIPTION: CHEST SINGLE VIEW IMAGES COMPLETED DATE/TIME: 06/20/2020 4:04 pm REASON FOR STUDY: BNP 734 COMPARISON: AP view of the chest from 04/04/2020. EXAM PARAMETERS: NUMBER OF VIEWS: One view. TECHNIQUE: An AP view of the chest was obtained. RADIATION DOSE: NA LIMITATIONS: None. FINDINGS: LUNGS AND PLEURA: Bilateral basilar predominant interstitial opacities that are unchanged compared to the radiograph from 04/04/2020. The costophrenic sulci are blunted. There is a stable no dule with fiducial markers in the right upper lobe. There is no pneumothorax. MEDIASTINUM AND HILAR STRUCTURES: No mediastinal or hilar contour abnormality. HEART AND VASCULAR STRUCTURES: The cardiac silhouette is enlarged. BONES: No acute findings. HARDWARE: Arthroplasty hardware in the left shoulder. OTHER: No other finding. IMPRESSION: Cardiomegaly and bilateral basilar predominant interstitial opacities that are unchanged compared to the radiograph from 04/04/2020. TECHNICAL DOCUMENTATION: JOB ID: [id number] 2010 [employer]- All Rights Reserved Reading location - IP/workstation name: [email or web address]
--- NOTE | 2020-06-20 16:21 | ER Document Report ---
ED Cardiac - General Chief Complaint: Irregular Pulse Stated Complaint: ABNORMAL LABS Time Seen by Provider: 06/20/20 15:35 Primary Care Provider: TRE PERKINS FNP-C [ALLIED HEALTH PROFESSIONAL] - Follow up as needed Mode of Arrival: Wheelchair TRAVEL OUTSIDE OF THE [place] IN LAST 30 DAYS: No - HPI Notes: Patient is a 80-year-old male with a past medical history of high blood pressure and previous lung cancer who presents with shortness of breath and slow heart rate. Patient states he has been short of breath for about 1 month. His housekeeper home has placed him on prednisone. He denies any other new medications. He had lab work done with his family doctor and had a BNP that was 700 and he was told to go to the ER. In triage, he was noted to have a heart rate of 37 and was sent directly back to the room. Patient denies any chest pain. He states that shortness of breath has been there for 1 month but is slightly worse this week. No dizziness or headaches. No nausea or vomiting. No recent illnesses. Never had a cardiac history. - Related Data Allergies/Adverse Reactions: Iodinated Contrast Media [Iodinated Contrast- Oral and IV Dye] Allergy (Intermediate, Verified 01/13/20 10:31) Generalized Itching Past Medical History - General Information source: Patient - Social History Smoking Status: Unknown if Ever Smoked Frequency of alcohol use: None Drug Abuse: None Family History: Reviewed & Not Pertinent - Past Medical History Cardiac Medical History: Reports: Hx Congestive Heart Failure, Hx Coronary Artery Disease - WITH STENT 1998, Hx Hypercholesterolemia, Hx Hypertension Denies: Hx Heart Attack Pulmonary Medical History: Denies: Hx Asthma, Hx Bronchitis, Hx COPD, Hx Pneumonia Neurological Medical History: Denies: Hx Cerebrovascular Accident, Hx Seizures Renal/ Medical History: Denies: Hx Peritoneal Dialysis Malignancy Medical History: Reports Hx Lung Cancer Musculoskeletal Medical History: Reports Hx Arthritis - BACK Past Surgical History: Reports: Hx Abdominal Surgery - small bowel, Hx Appendec sean, Hx Cardiac Catheterization - w/ stent , Hx Orthopedic Surgery - knee, back, carple tunnel, Hx Thyroid Surgery - Immunizations Hx Diphtheria, Pertussis, Tetanus Vaccination: Yes Hx Pneumococcal Vaccination: 07/01/17 Review of Systems - Review of Systems Notes: CONSTITUTIONAL: No fever, fatigue or weight loss. SKIN: No rash. CARDIOVASCULAR: No chest pain or edema. RESPIRATORY: No cough, congestion, or wheezing. Positive for shortness of breath. GASTROINTESTINAL: No abdominal pain, nausea, vomiting, bloody stools or diarrhea. MUSCULOSKELETAL: No joint pain or swelling. NEUROLOGIC: No seizures. No headache, focal weakness or sensory changes. HEMATOLOGIC: No unusual bruising or bleeding. Physical Exam - Vital signs Vitals: Temp Pulse Resp BP Pulse Ox 98.0 F 37 L 18 169/50 H 96 06/20/20 03:35 06/20/20 03:35 06/20/20 03:35 06/20/20 03:35 06/20/20 03:35 - General General appearance: Appears well In distress: None Notes: VITAL SIGNS: Bradycardic. GENERAL: No acute distress, non-toxic appearance. HEAD: Normal with no signs of head trauma. EYES: Conjunctiva normal, no discharge. EARS: Hearing grossly intact. NECK: Normal range of motion, no tenderness, supple, no lymphadenopathy, No adenopathy, no JVD. CHEST: Clear breath sounds bilaterally. No wheezes, rales, or rhonchi. CARDIAC: Bradycardic. VASCULAR: Trace lower extremity pitting edema bilaterally. Peripheral pulses normal and equal in bilateral radial pulses. ABDOMEN: Normal and soft with no tenderness. MUSCULOSKELETAL: Good range of motion of all major joints. Extremities without clubbing, cyanosis or edema. NEUROLOGICAL: Alert and oriented x 3. No focal sensory or strength deficits. Speech normal. Follows commands appropriately. PSYCHIATRIC: Normal Affect, judgement and mood. SKIN: Normal appearance with no rashes or lesions. Course - Re-evaluation Re-evalutation: 06/20/20 16:20 Patient's EKG is concerning for complete heart block. I discussed with Dr. Gerardo from cardiology who recommended that patient be transferred to a different facility that is better equipped to handle this. I immediately called [facility] for transfer. I am currently awaiting a callback from the transfer center to speak to the district court justice. Patient is alert and oriented. He is resting comfortably. Pacer pads are placed on him as a precaution. 06/20/20 17:03 Patient was accepted at [facility] with Dr. Harry Mcdermott. He will be going by air. I have reevaluated the patient numerous times and he continues to be doing well. Pulse is 36. His blood pressure is stable. I have updated him and his . They were very agreeable to this plan. - Vital Signs Vital signs: Temp Pulse Resp BP Pulse Ox 98.0 F 37 L 17 174/55 H 97 06/20/20 03:35 06/20/20 03:35 06/20/20 16:52 06/20/20 16:52 06/20/20 16:05 - Laboratory Results Result Diagrams: 06/20/20 15:50 06/20/20 15:50 Laboratory Results Interpreted: 06/20/20 06/20/20 15:50 15:50 WBC 12.8 H RBC 4.18 L Hgb 13.1 L Lymph % (Auto) 11.1 L Absolute Neuts (auto) 10.6 H Seg Neutrophils % 82.7 H BUN 33 H Glucose 129 H AST 70 H ALT 125 H Critical Laboratory Results Reviewed: No Critical Results - Radiology Results Critical Radiology Results Reviewed: No Critical Results - EKG Interpretation by Me Rate: Bradycardia Heart block present: CHB (3rd degree block) Additional EKG results interpreted by me: 06/20/20 16:20 EKG shows a rate of 37. Concern for complete heart block. This is changed from previous EKG. No acute ST changes. Critical Care Note - Critical Care Note Total time excluding time spent on procedures (mins): 45 Comments: Upon my evaluation, this patient had a high probability of imminent or life- threatening deterioration due to complete heart block, which required my direct attention, intervention, and personal management. I have personally provided 45 minutes of critical care time. Time includes review of laboratory data, radiology results, discussion with consultants, and monitoring for potential decompensation. Interventions were performed as documented above. Discharge - Discharge Clinical Impression: Third degree heart block Condition: Serious Disposition: [facility] Referrals: TRE PERKINS, JOAN-C [ALLIED HEALTH PROFESSIONAL] - Follow up as needed
[2020-06-20 16:25] LABS: ALBUMIN 4.1 g/dL (3.5-5.0); ALKALINE PHOSPHATASE 66 U/L (38-126); ANION GAP 9 (5-19); ASPARTATE AMINO TRANSFERASE 70 U/L (17-59); BILIRUBIN,DIRECT 0.2 mg/dL (0.0-0.4); BILIRUBIN,TOTAL 0.6 mg/dL (0.2-1.3); BLOOD UREA NITROGEN 33 mg/dL (7-20); CALCIUM 9.2 mg/dL (8.4-10.2); CARBON DIOXIDE 24 mmol/L (22-30); CHLORIDE 107 mmol/L (98-107); GLUCOSE 129 mg/dL (75-110); POTASSIUM 4.6 mmol/L (3.6-5.0); TOTAL PROTEIN 7.6 g/dL (6.3-8.2)
[2020-06-20 17:03] VITALS: BP 174/55
--- NOTE | 2020-06-21 12:21 | EKG REPORT ---
SEVERITY:- ABNORMAL ECG - COMPLETE AV BLOCK WITH WIDE QRS COMPLEX( IDIOVENTRICULAR RHYTHM), THIS IS NEW SINCE 01/08/20 EKG. : Confirmed by: Praveen Cervantes MD 21-Jun-2020 12:20:59
== END 2020-06-20 17:20 | disposition short-term general hospital (02) ==
LOC: ER 14:46
DX: I44.2 Atrioventricular block, complete (principal); R06.02 Shortness of breath; R00.1 Bradycardia, unspecified; I11.0 Hypertensive heart disease with heart failure; I50.9 Heart failure, unspecified; I25.10 Atherosclerotic heart disease of native coronary artery without angina pectoris; E78.00 Pure hypercholesterolemia, unspecified; Z85.118 Personal history of other malignant neoplasm of bronchus and lung
CPT/HCPCS: 36415; 71045; 80053; 83735; 84484; 85025; 93005; 93010; 99285